=== PATIENT | male | born 1980 | race Caucasian/White ===

== ENCOUNTER 2016-05-21 12:09 | Emergency (ER) | payer OTHER ==
[2016-05-21 12:13] VITALS: PULSE 65; RESP 16; TEMP 98.4
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
[2016-05-21 14:24] VITALS: BP 126/52; O2SAT 99
== END 2016-05-21 14:22 | disposition home or self-care (01) ==
DX: S09.93XA Unspecified injury of face, initial encounter (principal); V89.2XXA Person injured in unspecified motor-vehicle accident, traffic, initial encounter; Y93.89 Activity, other specified